=== PATIENT | female | born 2000 | race Caucasian/White ===

== ENCOUNTER 2021-05-30 17:06 | Emergency (ER) | payer MEDICAID ==
[~2021-05-30] VITALS: Ht 172.7 cm; Wt 90.9 kg
[2021-05-30 17:10] VITALS: TEMP 98.3
[2021-05-30 17:34] LABS: BASO % 0.3 % (0.0-2.0); EOS # 0.1 (0.0-0.7); EOS % 0.8 % (0-4.0); GRAN # 9.1 (1.4-6.5); GRAN % 80.6 % (42.2-75.2); HEMOGLOBIN 10.6 g/dl (12.5-16.0); LYMPH # 1.2 (1.2-3.4); LYMPH % 10.8 % (20.0-51.0); MEAN CELL VOLUME 92 fl (80.0-100.0); MEAN CORPUSCULAR HEMOGLOBIN 32 pg (27.0-31.0); MEAN CORPUSCULAR HGB CONC 34 g/dl (33.0-37.0); MEAN PLATELET VOLUME 11.4 fl (7.4-10.4); MONO # 0.8 (0.1-0.6); MONO % 7.1 % (1.7-9.3); PLATELET COUNT 189 K/mm3 (130-400); RED BLOOD COUNT 3.35 M/mm3 (4.10-5.30); REDCELL DISTRIBUTION WIDTH-CV 12.9 % (11.5-14.5)
[2021-05-30 17:36] LABS: HEMATOCRIT 30.9 % (37.0-47.0)
[2021-05-30 17:55] LABS: ALANINE AMINOTRANSFERASE 12 U/L (4-34); ALBUMIN 3.6 gm/dL (3.5-5.0); ALKALINE PHOSPHATASE 77 U/L (50-136); ANION GAP 9 mmol/L (7-16); AST,SGOT 20 U/L (15-37); BILIRUBIN,TOTAL < 0.1 mg/dL (0.0-1.0); BLOOD UREA NITROGEN 6 mg/dL (7-17); CALCIUM 8.6 mg/dL (8.4-10.2); CARBON DIOXIDE 21 mmol/L (22-30); CHLORIDE 104 mmol/L (98-107); CREATININE, serum 0.41 (0.52-1.25); GLUCOSE 94 mg/dL (74-106); POTASSIUM 3.4 mmol/L (3.4-5.0); SODIUM 135 mmol/L (137-145); TOTAL PROTEIN 6.7 gm/dL (6.4-8.2)
[2021-05-30 18:25] LABS: C-REACTIVE PROTEIN 0.9 mg/dL (0.0-0.9)
--- NOTE | 2021-05-30 19:00 | NUR ---
1900 EFM ON FOR 20 MINUTE STRIP. FHT BASELINE 125 WITH ACCELS TO 150-160 WITH MOVEMENT AND GOOD VARIABILITY. NO CONTRACTIONS NOTED OR C/O BY PT.
[2021-05-30 19:53] VITALS: BP 125/75; PULSE 93
== END 2021-05-30 19:53 | disposition home or self-care (01) ==
LOC: COL.ER 17:06
PROVIDERS: Family Medicine
DX: O99.891 Other specified diseases and conditions complicating pregnancy (principal); F44.4 Conversion disorder with motor symptom or deficit; Z3A.29 29 weeks gestation of pregnancy
CPT/HCPCS: J2060; J7120